=== PATIENT | male | born 1990 | race Caucasian/White ===

== ENCOUNTER 2019-01-09 14:46 | Emergency (ER) | payer SELFPAY ==
[~2019-01-09] VITALS: Ht 177.8 cm; Wt 83.9 kg
--- NOTE | 2019-01-09 14:52 | NUR ---
ED Nurse Note: PT CALLED BUT NOT IN WAITING ROOM.
--- NOTE | 2019-01-09 14:57 | NUR ---
ED Nurse Note: Patient walked in to ER due to neck pain x 2 days ago after falling off skateboard 2 days ago while drunk. He also stated that he is having a mild headcahe and had 3 bottles of beer prior arrival. No c/o nausea/ vomiting. Alert and oriented, verbally responsive.
[2019-01-09] MEDS ORDERED: NKM (15:01)
[2019-01-09 15:16] VITALS: BP 119/64
[2019-01-09] MEDS ORDERED: Tetanus/Diptheria/Pertussis IM ONE (15:45)
[2019-01-09] MEDS ORDERED: Neosporin Oint Ud Pkt TOPIC ONE (15:45)
--- NOTE | 2019-01-09 15:48 | NUR ---
ED Nurse Note: Went down for Xray C spine.
[2019-01-09 16:12] VITALS: BP 119/64
--- NOTE | 2019-01-09 16:12 | NUR ---
ED Nurse Note: Pt decided to leave before PA comes in and talk to him about the X-ray result, PA aware. Being aggressive, rude to nurses. Pt left AMA, form signed, witnessed by RN. Incident report done.
--- NOTE | 2019-01-09 16:15 | Emergency Room Report ---
History of Present Illness General Chief Complaint: Neck Pain Source: Patient Present Illness HPI 28-year-old male presents to the emergency department complaining of 8 out of 10 severity neck pain both midline and lateral status post mechanical fall off of his skateboard 2 days ago. Patient is loss of consciousness he denies nausea , vomiting, dizziness or visual changes. Patient reports that his pain has been progressive he has had no relief of his symptoms with rest. Patient denies paresthesias he denies midline back pain he states he was not wearing a helmet. Denies numbness tingling or loss of sensation or gross motor movements of the extremities, incontinence of bowel or bladder. Denies CP, Palpitations, LOC, AMS, dizziness, Changes in Vision, weakness or a sudden severe headache. He is also reporting road rash of the lower back. Not up-to-date with his tetanus vaccinations. Denies taking blood thinning medications. Allergies: Coded Allergies: No Known Allergies (Unverified , 01/09/19) Patient History Past Medical History: see triage record Past Surgical History: none Pertinent Family History: none Social History: Reports: alcohol use - regular binges 4-5 days at a time. , drug use - THC Reviewed Nursing Documentation: PMH: Agreed; PSxH: Agreed Nursing Documentation-PMH Past Medical History: No Stated History Review of Systems All Other Systems: negative except mentioned in HPI Physical Exam Vital Signs Date Time Temp Pulse Resp B/P (MAP) Pulse Ox O2 Delivery O2 Flow Rate FiO2 01/09/19 14:56 99.3 120 16 119/64 (82) 96 Room Air Medical Decision Making PA Attestation Dr. Prescott is my supervising Physician whom patient management has been discussed with. Diagnostic Impression: Primary Impression: Neck pain Additional Impression: Abrasion ER Course 28-year-old male presents to the emergency department complaining of 8 out of 10 severity neck pain both midline and lateral status post mechanical fall off of his skateboard 2 days ago. Patient is loss of consciousness he denies nausea , vomiting, dizziness or visual changes. Patient reports that his pain has been progressive he has had no relief of his symptoms with rest. Patient denies paresthesias he denies midline back pain he states he was not wearing a helmet. Denies numbness tingling or loss of sensation or gross motor movements of the extremities, incontinence of bowel or bladder. Denies CP, Palpitations, LOC, AMS, dizziness, Changes in Vision, weakness or a sudden severe headache. He is also reporting road rash of the lower back. Not up-to-date with his tetanus vaccinations. Denies taking blood thinning medications. Ddx considered but are not limited to Fracture, dislocation, contusion, Sprain/ Strain/Spasm, Abrasions, Spinal Chord injury just to name a few. Vital signs: are WNL, pt. is afebrile, pt. tachycardic H&PE are most consistent with musculoskeletal injury will perform imaging to r/ o fractures/dislocations. Dense of spinal cord impingement or significant injury, no evidence of focal neurological deficits. ORDERS: - X-ray cervical spine - Pending at time of pt. leaving AMA ED INTERVENTIONS: -- Pt. placed in Soft Cervical collar. - Tylenol PO -Tetanus vaccination was administered -Neosporin was applied to road rash. DISPOSITION:AMA. - At this time the patient is requesting to leave AGAINST MEDICAL ADVICE. I believe that this patient has the capacity to make decisions on his own. I discussed with the patient the risks of leaving AMA. Some of these risks include delay in diagnosis and treatment, as well as worsening of symptoms, organ damage, and permanent disability or even . After discussing these risks with the patient. He continues to express his want to leave AGAINST MEDICAL ADVICE. I encouraged the patient to return at any time, and that he will be welcome here in the emergency department to continue medical management. Last Vital Signs Date Time Temp Pulse Resp B/P (MAP) Pulse Ox O2 Delivery O2 Flow Rate FiO2 01/09/19 15:16 99.3 16 119/64 96 Room Air 01/09/19 14:56 120 Disposition: HOME, SELF-CARE Condition: Stable Additional Instructions: You are leaving AMA, before results of your diagnostic lab work are available. This can cause delayed diagnosis as well as treatment, and ultimately leading up to worsening of symptoms, damage to organs, permanent disability or even . You are encouraged to return to the ER at any time if you want to continue your evaluation Follow up with a Primary Care Provider in 3-5 days, even if your symptoms have resolved. --Please review list of primary care clinics, if you do not already have a primary care provider Return sooner to ED if new symptoms occur, or current symptoms become worse. - Please note that this Emergency Department Report was dictated using Quidsilighting technician technology software, occasionally this can lead to erroneous entry secondary to interpretation by the dictation equipment. Lee Ann Ricci Jan 09, 2019 16:15
--- NOTE | 2019-01-09 16:22 | Diagnostic Imaging Report ---
Indication: Pain, status post fall Technique: 3 views of the cervical spine Comparison: none Findings: No prevertebral soft tissue swelling. Bony alignment is normal. Vertebral body heights are preserved. Disc spaces are preserved. No acute fractures. No dislocations. Impression: No acute process
== END 2019-01-09 16:12 | disposition home or self-care (01) ==
LOC: EMR 16:00
DX: M54.2 Cervicalgia (principal); T14.8XXA Other injury of unspecified body region, initial encounter; V00.131A Fall from skateboard, initial encounter; Y92.9 Unspecified place or not applicable; Z23 Encounter for immunization
CPT/HCPCS: 72040; 90471; 90715; 99283

== ENCOUNTER 2019-01-16 17:01 | Emergency (ER) | payer SELFPAY ==
[~2019-01-16] VITALS: Ht 177.8 cm; Wt 79.4 kg
[~2019-01-16 17:01] MED LIST: NKM
[2019-01-16 17:28] VITALS: BP 140/93
--- NOTE | 2019-01-16 17:30 | NUR ---
ED Nurse Note: pt walked in to ED C/O posterior headache and pressure. States he fell about 2 weeks ago and hit his head. pt is alert x4. VSS
--- NOTE | 2019-01-16 17:58 | NUR ---
ED Nurse Note: left for CT
--- NOTE | 2019-01-16 18:05 | NUR ---
ED Nurse Note: returned from CT
--- NOTE | 2019-01-16 18:14 | Diagnostic Imaging Report ---
Indication: Head trauma, posterior headache and head pressure Technique: Continuous helical CT scanning of the head was performed without intravenous contrast material. Axial and coronal 5 mm sections were generated. Radiation dose was minimized using automated exposure control Dose: Total Dose Length Product - DLP 1400.[address] Dose Index - CTDIvol(s) 70.38 mGy. Comparison: none Findings: The ventricular system is normal in size and configuration. There is no shift of midline structures. No abnormal extra-axial fluid collections are noted. There is no evidence of intracerebral bleeding. No other abnormal high or low density areas are noted within the brain. Intact calvarium. Visualized orbits and sinuses are unremarkable. The ley-white differentiation is normal Impression: Normal CT scan of the head without contrast material. The CT scanner at [facility] is accredited by the [employer] and the scans are performed using protocols designed to limit radiation exposure to as low as reasonably achievable to attain images of sufficient resolution adequate for diagnostic evaluation.
[2019-01-16] MEDS ORDERED: IBU800 MG PO (18:16)
--- NOTE | 2019-01-16 18:16 | Emergency Room Report ---
History of Present Illness General Chief Complaint: Headache Source: Patient Present Illness HPI 28-year-old male with extensive history of marijuana abuse and alcohol abuse here complaining of a 10 out of 10 headache without radiation. Patient does not recall whether he recently fell and had his head however reports that due to riding his skateboard all the time without wearing a helmet and always being high either on alcohol or marijuana might have recently had a head trauma. Denies dizziness and blurred vision. Denies photophobia nausea vomiting. Patient is extremely agitated. Denies all other injuries. Denies chest pain, shortness of breath, palpitation, abdominal pain, nausea vomiting. Also complains of anxiety and request anxiety medication however denies suicidal and homicidal ideation. Allergies: Coded Allergies: No Known Allergies (Unverified , 01/09/19) Patient History Past Medical History: see triage record Past Surgical History: unable to obtain Pertinent Family History: none Social History: Reports: alcohol use, drug use Immunizations: UTD Reviewed Nursing Documentation: PMH: Agreed; PSxH: Agreed Nursing Documentation-PMH Past Medical History: No Stated History Review of Systems All Other Systems: negative except mentioned in HPI Physical Exam Vital Signs Date Time Temp Pulse Resp B/P (MAP) Pulse Ox O2 Delivery O2 Flow Rate FiO2 01/16/19 17:10 99.1 97 18 146/93 (110) 96 Room Air Sp02 EP Interpretation: reviewed, normal General Appearance: no apparent distress, alert, GCS 15, non-toxic Head: normocephalic, atraumatic Eyes: bilateral eye normal inspection, bilateral eye PERRL ENT: hearing grossly normal, normal pharynx, no angioedema, normal voice Neck: full range of motion, supple/symm/no masses Respiratory: chest non-tender, lungs clear, normal breath sounds, speaking full sentences Cardiovascular #1: regular rate, rhythm, no edema, no murmur Gastrointestinal: normal bowel sounds, non tender, soft, non-distended, no guarding, no rebound Rectal: deferred Genitourinary: normal inspection, no CVA tenderness Musculoskeletal: back normal, gait/station normal, normal range of motion, non- tender Neurologic: alert, oriented x3, responsive, motor strength/tone normal, sensory intact, speech normal Psychiatric: judgement/insight normal, memory normal, mood/affect normal, no suicidal/homicidal ideation Skin: no rash Lymphatic: normal inspection, no adenopathy Medical Decision Making PA Attestation Diagnosis and treatment plans were reviewed and discussed with my supervising physician Dr. Wu Diagnostic Impression: Primary Impression: Head contusion ER Course 28-year-old male with extensive history of marijuana abuse and alcohol abuse here complaining of a 10 out of 10 headache without radiation. Patient does not recall whether he recently fell and had his head however reports that due to riding his skateboard all the time without wearing a helmet and always being high either on alcohol or marijuana might have recently had a head trauma. Denies dizziness and blurred vision. Denies photophobia nausea vomiting. Patient is extremely agitated. Denies all other injuries. Denies chest pain, shortness of breath, palpitation, abdominal pain, nausea vomiting. Also complains of anxiety and request anxiety medication however denies suicidal and homicidal ideation. Ddx considered but are not limited to: cerebral hematoma, concussion, skull fracture, head contusion Vital signs: are WNL, pt. is afebrile H&PE are most consistent with: Head contusion ORDERS: head CT no contrast , ibuprofen ED INTERVENTIONS: None required at this time. DISCHARGE: At this time pt. is stable for d/c to home. Will provide printed patient care instructions, and any necessary prescriptions. Care plan and follow up instructions have been discussed with the patient prior to discharge. Advised patient to stop drinking alcohol and using marijuana follow-up with her primary care provider at this time I will not treat his anxiety as this needs to be treated with primary care provider no further imaging is needed head CT scan was done due to patient not being a good historian in terms of when exactly he had his head. CT/MRI/US Diagnostic Results CT/MRI/US Diagnostic Results : Imaging Test Ordered: Head CT no contrast Impression No subdural hematoma noted and no skull fracture Last Vital Signs Date Time Temp Pulse Resp B/P (MAP) Pulse Ox O2 Delivery O2 Flow Rate FiO2 01/16/19 17:10 99.1 97 18 146/93 (110) 96 Room Air Disposition: HOME, SELF-CARE Condition: Stable Scripts Ibuprofen (Ibu) 800 Mg Tablet 800 MG PO BID, #20 TAB Prov: Dinora Suarez 01/16/19 Patient Instructions: Facial or Scalp Contusion, [id number] Additional Instructions: Take medication as directed follow-up with your primary care provider at this time no further imaging or assessment needed your increased headache can be secondary to marijuana use and alcohol intake. Dinora Suarez Jan 16, 2019 18:16
[2019-01-16 18:25] VITALS: BP 138/80
--- NOTE | 2019-01-16 18:25 | NUR ---
ER DISCHARGE NOTE: Patient is cleared to be discharged per ERMD, pt is aox4, on room air, with stable vital signs. pt was given dc and prescription instructions, pt was able to verbalize understanding, pt id band removed without complications. pt is able to ambulate with steady gait. pt took all belongings.
== END 2019-01-16 18:30 | disposition home or self-care (01) ==
LOC: EMR 18:13
DX: S00.93XA Contusion of unspecified part of head, initial encounter (principal); F12.10 Cannabis abuse, uncomplicated; F10.10 Alcohol abuse, uncomplicated; F41.9 Anxiety disorder, unspecified; R45.1 Restlessness and agitation; X58.XXXA Exposure to other specified factors, initial encounter; Y92.9 Unspecified place or not applicable
CPT/HCPCS: 70450; 99284